=== PATIENT | female | born 1990 | race Caucasian/White ===

== ENCOUNTER 2017-05-03 20:27 | Emergency (ER) | payer OTHER ==
[~2017-05-03] VITALS: Ht 165.1 cm; Wt 68.3 kg
--- NOTE | 2017-05-03 21:21 | PHYS DOC ---
Past Medical History Past Medical History: Other Additional Past Medical Histor: BACK PAIN Past Surgical History: Other Additional Past Surgical Histo: ROTATOR CUFF-L Alcohol Use: Occasionally Drug Use: None Adult General Chief Complaint Chief Complaint: ABDOMINAL PAIN HPI HPI Patient is a 26 year old female who presents with right-sided back pain. She states it started last night around midnight when she is at work and she felt like it maybe could be muscle spasm since she has muscle spasms before she try to stretch the pain kept coming and going. She states it's posterior aspect around ribs 9-11. She states it feels like someone is punching her in the back. It comes and goes if she twists it feels a little worse. She also felt somewhat nauseated. She denies abdominal pain or discomfort, dysuria or hematuria, she denies any vaginal bleeding or discharge. She denies any past medical history or any allergies to medications. She was seen in urgent care earlier [facility] and sent in to the ER for further evaluation and treatment. She states the pain gets up to 9 or 10 and she had difficulty sleeping today as she works in [employer]. She states other times it goes down into a bearable range of 5 or 6. She denies any trauma to her back or chest. She she denies any shortness of breath, diarrhea or blood in her stools. Review of Systems Review of Systems Constitutional: Denies fever or chills [] Eyes: Denies change in visual acuity, redness, or eye pain [] HENT: Denies nasal congestion or sore throat [] Respiratory: Denies cough or shortness of breath [] Cardiovascular: No additional information not addressed in HPI [] GI: Denies abdominal pain, vomiting, bloody stools or diarrhea, positive for nausea : Denies dysuria or hematuria [] Musculoskeletal: Positive for back pain, Denies joint pain [] Integument: Denies rash or skin lesions [] Neurologic: Denies headache, focal weakness or sensory changes [] Endocrine: Denies polyuria or polydipsia [] Current Medications Current Medications Current Medications Medications (Trade) Dose Ordered Sig/[place] Start Time Stop Time Status Last Admin Dose Admin Info (Do NOT chart on this entry -- for MONITORING) 1 each PRN DAILY PRN 05/03/17 23:00 05/05/17 22:59 Iohexol (Omnipaque 300 Mg/ml) 75 ml 1X ONCE 05/03/17 23:00 05/03/17 23:01 DC 05/03/17 23:27 75 ML Morphine Sulfate 2 mg PRN Q15MIN PRN 05/03/17 21:45 05/04/17 21:44 05/03/17 21:50 2 MG Ondansetron HCl (Zofran) 4 mg 1X ONCE 05/03/17 21:45 05/03/17 21:53 DC 05/03/17 21:49 4 MG Sodium Chloride 1,000 ml @ 1,000 mls/hr Q1H 05/03/17 21:34 05/03/17 22:33 DC 05/03/17 21:47 1,000 MLS/HR Allergies Allergies Allergies Coded Allergies Type Severity Reaction Last Updated Verified No Known Drug Allergies 05/03/17 No Physical Exam Physical Exam Constitutional: Well developed, well nourished, no acute distress, non-toxic appearance. [] HENT: Normocephalic, atraumatic, bilateral external ears normal, oropharynx moist, no oral exudates, nose normal. [] Eyes: PERRLA, EOMI, conjunctiva normal, no discharge. [] Neck: Normal range of motion, no tenderness, supple, no stridor. [] Cardiovascular:Heart rate regular rhythm, no murmur [] Lungs & Thorax: Bilateral breath sounds clear to auscultation [] Abdomen: Bowel sounds normal, soft, no tenderness, no masses, no pulsatile masses. No bruising or ecchymosis appreciated Skin: Warm, dry, no erythema, no rash. [] Back: No tenderness midline, positive for right sided CVA tenderness. [] Extremities: No tenderness, no cyanosis, no clubbing, ROM intact, no edema. [] Neurologic: Alert and oriented X 3, normal motor function, normal sensory function, no focal deficits noted. [] Psychologic: Affect normal, judgement normal, mood normal. [] Current Patient Data Vital Signs Vital Signs Date Time Temp Pulse Resp B/P (MAP) Pulse Ox O2 Delivery O2 Flow Rate FiO2 05/03/17 20:51 98.7 95 20 117/80 (92) 99 Room Air 98.7 Lab Values Laboratory Tests Test 05/03/17 20:53 05/03/17 22:35 White Blood Count 9.6 x10^3/uL (4.0-11.0) Red Blood Count 4.55 x10^6/uL (3.50-5.40) Hemoglobin 14.1 g/dL (12.0-15.5) Hematocrit 42.4 % (36.0-47.0) Mean Corpuscular Volume 93 fL (79-100) Mean Corpuscular Hemoglobin 31 pg (25-35) Mean Corpuscular Hemoglobin Concent 33 g/dL (31-37) Red Cell Distribution Width 13.2 % (11.5-14.5) Platelet Count 255 x10^3/uL (140-400) Neutrophils (%) (Auto) 68 % (31-73) Lymphocytes (%) (Auto) 21 % (24-48) L Monocytes (%) (Auto) 9 % (0-9) Eosinophils (%) (Auto) 1 % (0-3) Basophils (%) (Auto) 1 % (0-3) Neutrophils # (Auto) 6.5 x10^3uL (1.8-7.7) Lymphocytes # (Auto) 2.0 x10^3/uL (1.0-4.8) Monocytes # (Auto) 0.9 x10^3/uL (0.0-1.1) Eosinophils # (Auto) 0.1 x10^3/uL (0.0-0.7) Basophils # (Auto) 0.0 x10^3/uL (0.0-0.2) Urine Collection Type Unknown Urine Color Yellow Urine Clarity Clear Urine pH 6.0 Urine Specific [place] 1.010 Urine Protein Negative mg/dL (NEG-TRACE) Urine Glucose (UA) Negative mg/dL (NEG) Urine Ketones (Stick) Negative mg/dL (NEG) Urine Blood Negative (NEG) Urine Nitrite Negative (NEG) Urine Bilirubin Negative (NEG) Urine Urobilinogen Dipstick 0.2 mg/dL (0.2 mg/dL) Urine Leukocyte Esterase Negative (NEG) Urine RBC 1-2 /HPF (0-2) Urine WBC 1-4 /HPF (0-4) Urine Squamous Epithelial Cells Few /LPF Urine Bacteria 0 /HPF (0-FEW) Sodium Level 139 mmol/L (136-145) Potassium Level 4.5 mmol/L (3.5-5.1) Chloride Level 104 mmol/L (98-107) Carbon Dioxide Level 29 mmol/L (21-32) Anion Gap 6 (6-14) Blood Urea Nitrogen 11 mg/dL (7-20) Creatinine 0.8 mg/dL (0.6-1.0) Estimated GFR (Cockcroft-Gault) 87.4 Glucose Level 83 mg/dL (70-99) Calcium Level 8.9 mg/dL (8.5-10.1) Total Bilirubin 0.3 mg/dL (0.2-1.0) Direct Bilirubin 0.1 mg/dL (0.0-0.2) Aspartate Amino Transferase (AST) 16 U/L (15-37) Alanine Aminotransferase (ALT) 15 U/L (14-59) Alkaline Phosphatase 82 U/L (46-116) Creatine Kinase 63 U/L (26-192) Creatine Kinase MB (Mass) < 0.5 ng/mL (0.0-3.6) Creatine Kinase MB Relative Index % (0-4) Total Protein 7.5 g/dL (6.4-8.2) Albumin 3.8 g/dL (3.4-5.0) Lipase 105 U/L (73-393) Urine Opiates Screen Neg (NEG) Urine Methadone Screen Neg (NEG) Urine Barbiturates Neg (NEG) Urine Phencyclidine Screen Neg (NEG) Urine Amphetamine/Methamphetamine Neg (NEG) Urine Benzodiazepines Screen Neg (NEG) Urine Cocaine Screen Neg (NEG) Urine Cannabinoids Screen Neg (NEG) Urine Ethyl Alcohol Neg (NEG) Urine Test Negative (NEG) Laboratory Tests 05/03/17 20:53 Laboratory Tests 05/03/17 20:53 EKG EKG [] Radiology/Procedures Radiology/Procedures [facility] [address] [place] [address] IMAGING REPORT Signed PATIENT: EWA LAUREANO ACCOUNT: [id number] : 1990 LOCATION: ER AGE: 26 SEX: F EXAM STATUS: REG ER ORD. PHYSICIAN: RICHIE STANLEY MD REASON: right flank pain PROCEDURE: CT ABD PELV W/ IV CONTRST ONLY EXAM: Abdomen and pelvis CT with intravenous contrast. HISTORY: Right flank pain. TECHNIQUE: Computed tomographic images of the abdomen and pelvis were obtained following the administration of 75 cc Omnipaque 300 intravenous contrast. Multiplanar reformatting was performed. *One or more of the following individualized dose reduction techniques were utilized for this examination: 1. Automated exposure control. 2. Adjustment of the mA and/or kV according to patient size. 3. Use of iterative reconstruction technique. COMPARISON: None. FINDINGS: Evaluation of the lower thorax demonstrates posterior dependent and basilar atelectasis. There is no infiltrate or effusion. No hepatic lesion is seen. The gallbladder, pancreas, spleen and adrenal glands are unremarkable. There is no evidence of obstructive uropathy. No solid or cystic renal lesion is seen. No abnormally dilated loop of bowel is seen. There is no pathologically enlarged lymph node. The uterus is unremarkable. There are multiple ovarian follicles. There is a small to moderate amount of pelvic free fluid. There is degenerative change involving the lumbosacral junction, with associated mild right foraminal stenosis. IMPRESSION: 1. Small to moderate amount of pelvic free fluid. This can be physiologic in premenopausal females. 2. Otherwise, relatively unremarkable abdomen and pelvis CT. Electronically signed by: Poppy Donohue MD (05/03/2017 11:43 PM) [facility] DICTATED and SIGNED BY: POPPY DONOHUE MD DATE: 05/03/17 2987 CC: RICHIE STANLEY MD; NO PCP ~ Impressions: Back pain/ flank pain Course & Med Decision Making Course & Med Decision Making Pertinent Labs and Imaging studies reviewed. (See chart for details) CT scan, lab work did not show any acute abnormality's. Vitals also nonacute. She is tender to palpation on her right thoracic wall this could be a muscle spasm. We'll discharge with Flexeril and have her follow-up with primary care physician. Return precautions given. She is agreeable plan being discharged in stable condition this time. Dragon Disclaimer Dragon Disclaimer This electronic medical record was generated, in whole or in part, using a voice recognition dictation system. Departure Departure Impression: Primary Impression: Back pain Disposition: HOME, SELF-CARE Condition: STABLE Referrals: NO PCP (PCP) Patient Instructions: Back Pain, Adult Additional Instructions: You likely have a muscle as a neck and because of your pain. Your being discharged home with Flexeril which is a muscle relaxant. He can make you sleepy so do not drive or taking this medicine. Your tests and emergency Department didn't show any acute abnormality's. We did blood work, urinalysis, and a CAT scan of her abdomen pelvis. If your pain gets worse over the next several days she developed fevers, you have other concerns please return back to emergency department. You should follow up with her primary care physician within the next 4-5 days. Scripts Cyclobenzaprine Hcl (CYCLOBENZAPRINE HCL) 10 Mg Tablet 1 TAB PO TID Y for MUSCLE PAIN MDD q, #30 TAB Prov: RICHIE STANLEY MD 05/04/17 Problem Qualifiers Primary Impression: Back pain Back pain location: thoracic back pain Chronicity: acute Back pain laterality: right Qualified Codes: M54.6 - Pain in thoracic spine RICHIE STANLEY MD May 03, 2017 21:21
[2017-05-03] MEDS ORDERED: IV NORMAL SALINE 1000ML BAG 1,000 ML IV SCH (21:34)
[2017-05-03] MEDS ORDERED: ONDANSETRON PF 4 MG/2 ML VIAL. IV ONE (21:45)
[2017-05-03] MEDS ORDERED: MORPHINE SULFATE 2 MG/ML DISP.SYRIN. IV/SQ PRN (21:45)
[2017-05-03 21:56] LABS: BASO % 1 % (0-3); EOS % 1 % (0-3); HEMATOCRIT 42.4 % (36.0-47.0); HEMOGLOBIN 14.1 g/dL (12.0-15.5); LYMPH % 21 % (24-48); MEAN CORPUSCULAR HEMOGLOBIN 31 pg (25-35); MEAN CORPUSCULAR HGB CONC 33 g/dL (31-37); MEAN CORPUSCULAR VOLUME 93 fL (79-100); MONO % 9 % (0-9); NEUT % 68 % (31-73); PLATELET COUNT 255 x10^3/uL (140-400); RED BLOOD COUNT 4.55 x10^6/uL (3.50-5.40); RED CELL DISTRIBUTION WIDTH 13.2 % (11.5-14.5); WHITE BLOOD COUNT 9.6 x10^3/uL (4.0-11.0)
[2017-05-03 21:58] LABS: BILIRUBIN,URINE NEGATIVE (NEG); GLUCOSE,URINE NEGATIVE (NEG); NITRITE,URINE NEGATIVE (NEG); PROTEIN,URINE NEGATIVE (NEG-TRACE); UROBILINOGEN,URINE 0.2 mg/dL (0.2 mg/dL)
[2017-05-03 22:05] LABS: BARBITURATES NEG (NEG); BENZODIAZEPINES NEG (NEG); CANNABINOIDS NEG (NEG); COCAINE NEG (NEG); METHADONE NEG (NEG); OPIATES NEG (NEG); PHENCYCLIDINE NEG (NEG)
[2017-05-03 22:11] LABS: BACTERIA,URINE 0 /HPF (0-FEW); CALCIUM 8.9 mg/dL (8.5-10.1); CREATININE 0.8 mg/dL (0.6-1.0); GFR 87.4; POTASSIUM 4.5 mmol/L (3.5-5.1); SQUAMOUS EPITHELIAL CELL,UR FEW /LPF
[2017-05-03 22:17] LABS: ALBUMIN 3.8 g/dL (3.4-5.0); DIRECT BILIRUBIN 0.1 mg/dL (0.0-0.2); TOTAL BILIRUBIN 0.3 mg/dL (0.2-1.0); TOTAL PROTEIN 7.5 g/dL (6.4-8.2)
[2017-05-03 22:26] LABS: CREATINE KINASE 63 U/L (26-192)
[2017-05-03 22:27] LABS: CKMB MASS < 0.5 ng/mL (0.0-3.6)
[2017-05-03] MEDS ORDERED: CONTRAST GIVEN MC PRN (23:00)
[2017-05-03] MEDS ORDERED: IOHEXOL 300 MG/ML 75 ML VIAL IV ONE (23:00)
[2017-05-03 23:01] LABS: NEG OBC UR NEG; POS OBC UR POS
--- NOTE | 2017-05-03 23:46 | RAD ---
EXAM: Abdomen and pelvis CT with intravenous contrast. HISTORY: Right flank pain. TECHNIQUE: Computed tomographic images of the abdomen and pelvis were obtained following the administration of 75 cc Omnipaque 300 intravenous contrast. Multiplanar reformatting was performed. *One or more of the following individualized dose reduction techniques were utilized for this examination: 1. Automated exposure control. 2. Adjustment of the mA and/or kV according to patient size. 3. Use of iterative reconstruction technique. COMPARISON: None. FINDINGS: Evaluation of the lower thorax demonstrates posterior dependent and basilar atelectasis. There is no infiltrate or effusion. No hepatic lesion is seen. The gallbladder, pancreas, spleen and adrenal glands are unremarkable. There is no evidence of obstructive uropathy. No solid or cystic renal lesion is seen. No abnormally dilated loop of bowel is seen. There is no pathologically enlarged lymph node. The uterus is unremarkable. There are multiple ovarian follicles. There is a small to moderate amount of pelvic free fluid. There is degenerative change involving the lumbosacral junction, with associated mild right foraminal stenosis. IMPRESSION: 1. Small to moderate amount of pelvic free fluid. This can be physiologic in premenopausal females. 2. Otherwise, relatively unremarkable abdomen and pelvis CT. Electronically signed by: Poppy Donohue MD (05/03/2017 11:43 PM) [facility]
[2017-05-04] VITALS: BP 106/70
[2017-05-04] MEDS ORDERED: CYCL10TA2 PO (00:05)
== END 2017-05-04 00:15 | disposition home or self-care (01) ==
LOC: ER 20:40
DX: M54.6 Pain in thoracic spine (principal); R11.0 Nausea
CPT/HCPCS: 36415; 74177; 80048; 80076; 80307; 81001; 81025; 82553; 83690; 85025; 96361; 96374; 96375; 99285; J2270; J2405; J7030; Q9967; G0479